=== PATIENT | female | born 1950 | race American Indian/Alaskan Native ===

== ENCOUNTER 2017-03-29 08:54 | Emergency (ER) | payer MEDICARE ==
[2017-03-29] MEDS ORDERED: MORPHINE IV ONE (09:44)
[2017-03-29] MEDS ORDERED: ZOFRAN IV ONE (09:44)
[2017-03-29] MEDS ORDERED: PEPCID IV ONE ×2 (09:44→10:05)
[2017-03-29] MEDS ORDERED: ZOFRAN ONE (10:01)
[2017-03-29] MEDS ORDERED: MORPHINE ONE ×2 (10:01→10:02)
[2017-03-29 10:19] LABS: Hematocrit 37.8 % (30.3-42.9); Hemoglobin 12.7 gm/dl (10.1-14.3); Mean Corpuscular HGB Conc 34 % (30-34); Mean Corpuscular Hemoglobin 27 pg (28-32); Mean Corpuscular Volume 82 fl (79-97); Platelet Count 264 K/mm3 (140-440); Red Blood Count 4.63 M/mm3 (3.65-5.03); Red Cell Distribution Width 12.5 % (13.2-15.2); White Blood Count 8.1 K/mm3 (4.5-11.0)
[2017-03-29 10:34] LABS: Alanine Aminotransferase 28 units/L (7-56); Albumin 4.5 g/dL (3.9-5); Albumin/Globulin Ratio 1.4 %; Alkaline Phosphatase 65 units/L (35-129); Anion Gap 21 mmol/L; BUN/Creatinine Ratio 22; Blood Urea Nitrogen 13 mg/dL (7-17); Calcium 9.1 mg/dL (8.4-10.2); Carbon Dioxide 24 mmol/L (22-30); Glucose 141 mg/dL (65-100); Lipase 14 units/L (13-60); Potassium 3.5 mmol/L (3.6-5.0); Sodium 141 mmol/L (137-145); Total Protein 7.7 g/dL (6.3-8.2)
[2017-03-29 11:08] LABS: Basophils % (Manual) 0 % (0.0-1.8); Blastocytes % (Manual) 0 %; Eosinophils % (Manual) 0 % (0.0-4.3)
[2017-03-29 11:09] LABS: Anisocytosis 1+; Diff Status Complete; Ovalocytes 1+; Poikilocytosis 1+; Stomatocytes 2+
--- NOTE | 2017-03-29 12:05 | Emergency Department Report ---
HPI - General Chief Complaint: Abdominal Pain Time Seen by Provider: 03/29/17 11:16 - HPI HPI: This is a 66-year-old after an [place] female who presents to the emergency department from home via EMS with complaint of abdominal pain, nausea, diarrhea , and vomiting that started last night after she ate [employer]. The pain was mostly mid upper abdomen and appeared to radiate towards chest. She denies any fever, shortness of breath, diaphoresis. She did not take anything for her symptoms prior to presentation. She is feeling improved after receiving some medication upon presentation here this morning, prior to my shift starting. She has a primary care physician through Dr. Jean Cai. She denies any past medical history other than some hypertension. No recent travel or sick contacts at home. ED Past Medical Hx - Past Medical History Previous Medical History?: Yes Hx Hypertension: Yes - Surgical History Past Surgical History?: Yes Additional Surgical History: hysterectomy - Social History Smoking Status: Never Smoker Substance Use Type: None - Medications Home Medications: Home Medications Medication Instructions Recorded Confirmed Last Taken Type Lisinopril [Zestril TAB] 04/09/13 04/09/13 Unknown History Diazepam Tab [Valium] 5 mg PO QHS PRN #30 tab 04/10/13 Unknown Rx oxyCODONE /ACETAMINOPHEN [Percocet 1 tab PO Q6HR PRN #30 tablet 04/10/13 Unknown Rx 5/325 mg] Acyclovir [Zovirax Tab] 800 mg PO QDAY #35 tab 05/27/13 Unknown Rx Oxycodone HCl/Acetaminophen 1 each PO Q4-6H PRN #30 tablet 05/27/13 Unknown Rx [Percocet 10-325 mg] Ondansetron [Zofran Odt] 4 mg PO Q8H PRN #10 tab.rapdis 03/29/17 Unknown Rx ED Review of Systems ROS: Stated complaint: N/V/D Other details as noted in HPI Comment: All other systems reviewed and negative Constitutional: denies: chills, fever Eyes: denies: eye pain, eye discharge, vision change ENT: denies: ear pain, throat pain Respiratory: denies: cough, shortness of breath, wheezing Cardiovascular: denies: palpitations, edema Gastrointestinal: abdominal pain, nausea, vomiting, diarrhea Genitourinary: denies: urgency, dysuria, discharge Musculoskeletal: denies: back pain, joint swelling, arthralgia Skin: denies: rash, lesions Neurological: denies: headache, weakness, paresthesias Physical Exam - Physical Exam Vital Signs: Vital Signs 03/29/17 03/29/17 09:35 10:00 Temperature 100 F H Pulse Rate 82 Respiratory 18 22 Rate Blood Pressure 182/81 O2 Sat by Pulse 99 Oximetry Physical Exam: GENERAL: The patient is well-developed well-nourished. HENT: Normocephalic. Atraumatic. Patient has moist mucous membranes. EYES: Extraocular motions are intact. Pupils equal reactive to light bilaterally. NECK: Supple. Trachea is midline. CHEST/LUNGS: Clear to auscultation. There is no respiratory distress noted. HEART/CARDIOVASCULAR: Regular. There is no tachycardia. There is no gallop rub or murmur. ABDOMEN: Abdomen is soft. Mild epigastric tenderness to palpation. No guarding or rebound tenderness. Patient has normal bowel sounds. There is no abdominal distention. SKIN: There is no rash. There is no edema. There is no diaphoresis. NEURO: The patient is awake, alert, and oriented. The patient is cooperative. The patient has no focal neurologic deficits. The patient has normal speech. MUSCULOSKELETAL: There is no tenderness or deformity. There is no limitation range of motion. There is no evidence of acute injury. ED Course Vital Signs 03/29/17 03/29/17 09:35 10:00 Temperature 100 F H Pulse Rate 82 Respiratory 18 22 Rate Blood Pressure 182/81 O2 Sat by Pulse 99 Oximetry ED Medical Decision Making - Lab Data Result diagrams: 03/29/17 09:56 03/29/17 09:56 - EKG Data -: EKG Interpreted by Nm EKG shows normal: sinus rhythm, axis, intervals (prolonged ND interval), QRS complexes, ST-T waves Rate: normal - EKG Data When compared to previous EKG there are: previous EKG unavailable Interpretation: other (sinus rhythm, prolonged ND interval, 77 bpm, no ST elevation NE) - Radiology Data Radiology results: report reviewed CTA CHEST CT ABDOMEN AND PELVIS WITH CONTRAST INDICATION: Elevated D-dimer, chest discomfort. COMPARISON: 05/30/[address] FINDINGS: Chest CTA performed following intravenous administration of 100 cc of Omnipaque 350. Rotational MIP's also obtained. Abdomen and pelvis CT also performed utilizing the same bolus. CHEST: Normal heart size. No effusion or size significant adenopathy. No aortic aneurysm, dissection or suspicious pulmonary arterial filling defect. Patent central airway. Normal imaged thyroid. Multiple bilateral subcentimeter noncalcified pulmonary nodules noted, many as on axial series 2, images 100-113 in the right lower lobe stable since 05/30/2012 as also few in the peripheral left lower lobe as on axial images 158 and 168. Approximately 4 mm similar peripheral right lower lobe nodule on axial image 159, series 2 though not definitively identified on the prior exam. Slight nonspecific distal esophageal prominence/thickening. ABDOMEN: Liver, spleen, gallbladder, pancreas, adrenals, nonaneurysmal abdominal aorta with few atherosclerotic calcifications, IVC and kidneys stable with approximately 2.2 cm left upper renal cortical cyst. No ascites or significant adenopathy. Nonopacified GI tract evaluation limited, though grossly nonobstructive. Normal appendix. Stable linear density/calcification along inner aspect of left rectus abdominis muscle, axial image 476, series 2. PELVIS: Healed infraumbilical midline incision. Uterus again surgically absent with numerous pelvic phleboliths. Minimal free fluid in the right hemipelvis. Sigmoid diverticulosis. Grossly unremarkable urinary bladder. No size significant adenopathy. Multilevel spinal degenerative changes as spurring, mild lumbar levoscoliosis and mid to lower lumbar facet arthropathy. CONCLUSION: 1. No CT evidence of pulmonary embolism or acute chest process in this patient with old granulomatous disease, as described. 2. No acute abdomen or pelvic CT abnormality with stable hysterectomy, diverticulosis and left renal cyst, amongst others, as above. Thank you for the opportunity to participate in this patient's care. Transcribed By: RS Dictated By: ADELSO SOLIS MD Electronically Authenticated By: ADELSO SOLIS MD Signed Date/Time: 03/29/17 6139 - Medical Decision Making This patient presented with some abdominal pain, nausea and vomiting and she felt like the pain radiated up towards the chest. EKG did not show any signs of ST elevation NE, ischemia or dysrhythmia. Her labs are mostly unremarkable except for a elevated and equivocal d-dimer. CT angiography of the chest and CT of the abdomen and pelvis with IV contrast were done that did not show any pulmonary embolus, dissection or any acute abnormalities in the abdomen or chest. She was given some pain medication, fluid and antinausea medication. She was reevaluated multiple times for multiple hours and says she is feeling much better. She was able to display the ability for oral rehydration. Vital signs stable throughout her ED course. She was discharged home with some antiemetics and encouragement to follow-up with her PCP. She will return to the ER with any worsening of her symptoms, intractable vomiting or inability to stay hydrated, or any acute distress. - Differential Diagnosis gastroenteritis, food poisoning, gastritis, diverticulitis, dissection Critical Care Time: No Critical care attestation.: If time is entered above; I have spent that time in minutes in the direct care of this critically ill patient, excluding procedure time. ED Disposition Clinical Impression: Abdominal pain Qualifiers: Abdominal location: upper abdomen, unspecified Qualified Code(s): R10.10 - Upper abdominal pain, unspecified Nausea & vomiting Qualifiers: Vomiting type: unspecified Vomiting Intractability: non-intractable Qualified Code(s): R11.2 - Nausea with vomiting, unspecified Disposition: TO HOME OR SELFCARE Is pt being admited?: No Condition: Stable Instructions: Acute Nausea and Vomiting (ED), Abdominal Pain (ED) Additional Instructions: Please follow-up with your primary care physician in the next few days. Increase her oral rehydration. Return to the emergency Department with any worsening of her symptoms, intractable vomiting, inability to stay hydrated, or any acute process. Prescriptions: Ondansetron [Zofran Odt] 4 mg PO Q8H PRN #10 tab.rapdis PRN Reason: Nausea Referrals: PRIMARY CARE, [Primary Care Provider] - [facility] Time of Disposition: 16:58
[2017-03-29 13:25] LABS: Bacteria,Urine 1+ /HPF (Negative); Bilirubin,Urine NEG (Negative); Blood,Urine SM (Negative); Ketones,Urine NEG (Negative); Leukocyte Esterase,Urine NEG (Negative); Mucus,Urine FEW /HPF; Nitrite,Urine NEG (Negative); Urobilinogen,Urine < 2.0 mg/dL (<2.0)
--- NOTE | 2017-03-29 15:46 | Cat Scan Report ---
CTA CHEST CT ABDOMEN AND PELVIS WITH CONTRAST INDICATION: Elevated D-dimer, chest discomfort. COMPARISON: 05/30/[address] FINDINGS: Chest CTA performed following intravenous administration of 100 cc of Omnipaque 350. Rotational MIP's also obtained. Abdomen and pelvis CT also performed utilizing the same bolus. CHEST: Normal heart size. No effusion or size significant adenopathy. No aortic aneurysm, dissection or suspicious pulmonary arterial filling defect. Patent central airway. Normal imaged thyroid. Multiple bilateral subcentimeter noncalcified pulmonary nodules noted, many as on axial series 2, images 100-113 in the right lower lobe stable since 05/30/2012 as also few in the peripheral left lower lobe as on axial images 158 and 168. Approximately 4 mm similar peripheral right lower lobe nodule on axial image 159, series 2 though not definitively identified on the prior exam. Slight nonspecific distal esophageal prominence/thickening. ABDOMEN: Liver, spleen, gallbladder, pancreas, adrenals, nonaneurysmal abdominal aorta with few atherosclerotic calcifications, IVC and kidneys stable with approximately 2.2 cm left upper renal cortical cyst. No ascites or significant adenopathy. Nonopacified GI tract evaluation limited, though grossly nonobstructive. Normal appendix. Stable linear density/calcification along inner aspect of left rectus abdominis muscle, axial image 476, series 2. PELVIS: Healed infraumbilical midline incision. Uterus again surgically absent with numerous pelvic phleboliths. Minimal free fluid in the right hemipelvis. Sigmoid diverticulosis. Grossly unremarkable urinary bladder. No size significant adenopathy. Multilevel spinal degenerative changes as spurring, mild lumbar levoscoliosis and mid to lower lumbar facet arthropathy. CONCLUSION: 1. No CT evidence of pulmonary embolism or acute chest process in this patient with old granulomatous disease, as described. 2. No acute abdomen or pelvic CT abnormality with stable hysterectomy, diverticulosis and left renal cyst, amongst others, as above. Thank you for the opportunity to participate in this patient's care.
[2017-03-29] MEDS ORDERED: REGLAN IV ONE (15:53)
[2017-03-29 17:22] VITALS: BP 146/79
== END 2017-03-29 17:23 | disposition home or self-care (01) ==
LOC: ED 08:54
DX: R10.10 Upper abdominal pain, unspecified (principal); R11.2 Nausea with vomiting, unspecified; R19.7 Diarrhea, unspecified; I10 Essential (primary) hypertension
CPT/HCPCS: 36415; 71275; 74177; 80053; 81001; 83690; 84484; 85007; 85025; 85379; 93005; 93010; 96374; 96375; 99284; J2270; J2405; J2765; Q9967

== ENCOUNTER 2018-09-11 11:23 | Outpatient (CLI) | payer MEDICARE, OTHER ==
--- NOTE | 2018-09-11 12:31 | XRay Report ---
RIGHT HIP, 2 views: History: Right hip pain. Normal bone mineralization. Minimal osteoarthritic changes are identified at the right hip. There are mild calcifications at the tendinous insertions on the greater trochanter and right ischium. No evidence for fracture, dislocation, osteonecrosis or bone lesion. IMPRESSION: Mild degenerative findings as described.
== END 2018-09-11 11:24 | disposition home or self-care (01) ==
LOC: XRAY 11:23
PROVIDERS: ATTEND Internal Medicine
DX: M16.11 Unilateral primary osteoarthritis, right hip (principal); I10 Essential (primary) hypertension; Z90.710 Acquired absence of both cervix and uterus

== ENCOUNTER 2021-05-10 10:28 | Emergency (ER) | payer MEDICARE, OTHER ==
[2021-05-10] MEDS ORDERED: ACETAMINOPHEN 325 MG TAB PO ONE (12:39)
[2021-05-10] MEDS ORDERED: IBUPROFEN 400 MG TAB PO ONE (12:39)
--- NOTE | 2021-05-10 12:41 | Emergency Department Report ---
ED General Adult HPI - General Chief complaint: Fall Stated complaint: right hip pain, fall PUI?: No Time Seen by Provider: 05/10/21 12:26 Source: patient, RN notes reviewed, old records reviewed Mode of arrival: Ambulatory Limitations: No Limitations - History of Present Illness Initial comments: The patient was evaluated in the emergency department for symptoms described in the history of present illness. He/she was evaluated in the context of the global COVID-19 pandemic, which necessitated consideration that the patient might be at risk for infection with the virus that causes COVID-19. Institutional protocols and algorithms that pertain to the evaluation of patients at risk for COVID-19 are in a state of rapid change based on information released by regulatory bodies including the CDC and federal and state organizations. These policies and algorithms were followed during the patient's care in the emergency department. Please note that these policies, procedures and recommendations changed on a rapid basis. The patient is a 71-year-old female. She presents to the ER today with complaints of right-sided hip pain, right-sided proximal thigh pain, and right paralumbar back pain, after mechanical fall last week. Patient reports that she fell down some stairs. She did not hit her head. Patient denies syncope or presyncope. Patient has been taking [id number] pain medication with minimal improvement in symptoms. The pain is throbbing, increases with palpation and range of motion, and decreases with rest. The patient reports that there are 6 stairs at home, she is ambulating with a cane, and that she lives at home with at least 1 family member. She denies additional injuries and complaints. -: Gradual, days(s) Location: back, right, lower extremity Radiation: non-radiation Quality: aching Improves with: other Worsens with: other - Related Data Home Medications Medication Instructions Recorded Confirmed Last Taken lisinopriL [Zestril TAB] 04/09/13 04/09/13 Unknown Previous Rx's Medication Instructions Recorded Last Taken Type diazePAM TAB [Valium] 5 mg PO QHS PRN #30 tab 04/10/13 Unknown Rx oxyCODONE /ACETAMINOPHEN [Percocet 1 tab PO Q6HR PRN #30 tablet 04/10/13 Unknown Rx 5/325 mg] Acyclovir [Zovirax Tab] 800 mg PO QDAY #35 tab 05/27/13 Unknown Rx Oxycodone HCl/Acetaminophen 1 each PO Q4-6H PRN #30 tablet 05/27/13 Unknown Rx [Percocet 10-325 mg] Ondansetron [Zofran Odt] 4 mg PO Q8H PRN #10 tab.rapdis 03/29/17 Unknown Rx Allergies Allergy/AdvReac Type Severity Reaction Status Date / Time No Known Allergies Allergy Unverified 03/29/17 09:38 ED Review of Systems ROS: Stated complaint: FELL ON RIGHT HIP Other details as noted in HPI Constitutional: denies: fever Eyes: denies: eye discharge ENT: denies: epistaxis Respiratory: denies: cough Cardiovascular: denies: chest pain Genitourinary: denies: dysuria Musculoskeletal: back pain, arthralgia, myalgia Neurological: denies: weakness, numbness ED Past Medical Hx - Past Medical History Previous Medical History?: Yes Hx Hypertension: Yes - Surgical History Past Surgical History?: Yes Additional Surgical History: hysterectomy - Social History Smoking Status: Never Smoker Substance Use Type: None - Medications Home Medications: Home Medications Medication Instructions Recorded Confirmed Last Taken Type lisinopriL [Zestril TAB] 04/09/13 04/09/13 Unknown History diazePAM TAB [Valium] 5 mg PO QHS PRN #30 tab 04/10/13 Unknown Rx oxyCODONE /ACETAMINOPHEN [Percocet 1 tab PO Q6HR PRN #30 tablet 04/10/13 Unknown Rx 5/325 mg] Acyclovir [Zovirax Tab] 800 mg PO QDAY #35 tab 05/27/13 Unknown Rx Oxycodone HCl/Acetaminophen 1 each PO Q4-6H PRN #30 tablet 05/27/13 Unknown Rx [Percocet 10-325 mg] Ondansetron [Zofran Odt] 4 mg PO Q8H PRN #10 tab.rapdis 03/29/17 Unknown Rx ED Physical Exam - General Limitations: No Limitations General appearance: alert, in no apparent distress - Head Head exam: Present: atraumatic, normocephalic - Eye Eye exam: Present: normal appearance, EOMI. Absent: nystagmus - ENT ENT exam: Present: normal exam, normal orophraynx, mucous membranes moist, normal external ear exam - Neck Neck exam: Present: normal inspection, full ROM. Absent: tenderness, meningismus - Respiratory Respiratory exam: Present: normal lung sounds bilaterally. Absent: respiratory distress, wheezes, rales, rhonchi, stridor, decreased breath sounds - Cardiovascular Cardiovascular Exam: Present: regular rate, normal rhythm, normal heart sounds. Absent: bradycardia, tachycardia, irregular rhythm, systolic murmur, diastolic murmur, rubs, gallop - GI/Abdominal GI/Abdominal exam: Present: soft. Absent: distended, tenderness, guarding, rebound, rigid, pulsatile mass - Extremities Exam Extremities exam: Present: normal inspection, full ROM, tenderness (There is right lateral pelvic and hip tenderness. There is proximal right femur tenderness.), other (2+ pulses noted in the bilateral upper and lower extremities. There is no palpable cord. negative Homans sign. Muscular compartments are soft. The pelvis is stable.). Absent: calf tenderness - Back Exam Back exam: Present: normal inspection, paraspinal tenderness. Absent: tenderness, CVA tenderness (R), CVA tenderness (L), muscle spasm - Neurological Exam Neurological exam: Present: alert, oriented X3, normal gait, other (No facial droop. Tongue midline. Extraocular movements intact bilaterally. Facial sensation intact to light touch in V1, V2, V3 distribution bilaterally. 5 and a 5 strength in 4 extremities. Sensation intact to light touch in 4 extremities.). Absent: motor sensory deficit - Psychiatric Psychiatric exam: Present: normal affect, normal mood - Skin Skin exam: Present: warm, dry, intact, normal color. Absent: rash ED Course Vital Signs 05/10/21 05/10/21 05/10/21 12:17 13:43 13:53 Temperature 98.6 F 98.9 F Pulse Rate 95 H 64 Respiratory 16 18 Rate Blood Pressure 141/90 163/73 [Left] O2 Sat by Pulse 98 Oximetry [ Digit-Finger] - Pulse Oximetry Interpretation Digit-Finger Initial Pulse Oximetry Readin O2 Sat by Pulse Oximetry: 98 Actions Taken: none ED Medical Decision Making - Lab Data Vital Signs 05/10/21 12:17 Temperature 98.6 F Pulse Rate 95 H Respiratory 16 Rate Blood Pressure 141/90 [Left] - Radiology Data Radiology results: pending, report reviewed, image reviewed AP PELVIS INDICATION / CLINICAL INFORMATION: Fall with pelvic pain. COMPARISON: None available. FINDINGS: BONES / JOINT(S): There is moderate lower lumbar spondylosis. There are minimal degenerative changes involving both hips. There is no evidence of acute fracture or subluxation. SOFT TISSUES: No significant abnormality. ADDITIONAL FINDINGS: None. IMPRESSION: No acute abnormality. Signer Name: En Ford MD Signed: 05/10/2021 12:16 PM Workstation Name: [id number] RIGHT FEMUR 2 VIEWS INDICATION / CLINICAL INFORMATION: Fall yesterday with right leg pain. COMPARISON: 09/11/18. FINDINGS: BONES / JOINT(S): There are mild degenerative changes involving the right kidney. There is no evidence of acute fracture or subluxation. SOFT TISSUES: No significant abnormality. ADDITIONAL FINDINGS: None. IMPRESSION: No acute abnormality. Signer Name: En Ford MD Signed: 05/10/2021 12:18 PM Workstation Name: [id number] - Medical Decision Making Differential diagnosis, including but not limited to: Sprain, strain, fracture, dislocation, musculoskeletal pain Assessment and plan: 71-year-old female, who is afebrile, with reassuring vital signs, saturating 98% on room Pulsoxymeter on my evaluation, presenting to the ER today with complaint of subacute right-sided paralumbar back pain, and right- sided hip pain and femur pain after mechanical fall last week on (it is currently Monday.) Patient ambulatory with a slow gait and with a cane for assistance. She has 6 stairs at home, and lives with at least one other person. X-rays show no fracture or dislocation. Saturating 99% on room air. Counseled patient on the natural history of mechanical fall, and blunt trauma. [place] improved after Tylenol and Motrin. She gave permission/consent further details of her care to be discussed with the family member, Ms. Echols ([phone]), who is an Allied health child care specialist. I called this phone number, nobody answered, and the voicemail is full. At the moment, the patient is resting comfortably on her stretcher, and she is not in any acute distress. Reached out to ER social media intern, I have requested home physical therapy evaluation. Social work/case management team will follow this up. Patient suitable for discharge at this point in time. Critical care attestation.: If time is entered above; I have spent that time in minutes in the direct care of this critically ill patient, excluding procedure time. ED Disposition Clinical Impression: Fall, Right hip pain Disposition: 01 HOME / SELF CARE / HOMELESS Is pt being admited?: No Does the pt Need Aspirin: No Condition: Good Additional Instructions: As we discussed, pain typically gets worse before it gets better after fall and blunt trauma.. Rest and avoid heavy lifting, and avoid strenuous physical activity. Engage in physical activities as tolerated. For pain, the patient can take ibuprofen, 400 mg with food every 6 hours, alternating with acetaminophen, 650 mg every 4 hours, also which can be purchased [id number]. Return to the ER right away with new pain, worsened pain, migration of pain, fevers, chills, confusion, weakness, numbness, intractable nausea or vomiting, severe chest pain, or severe abdominal pain. Patient has also been ordered for home physical therapy evaluation and our case management/social work team should be coordinating with your private insurance to set up for home physical therapy and evaluation. Please use cane as needed for assistance with ambulation, alternate ice packs and heat packs as needed for physical pain. Please follow-up with your primary care doctor in 5 to 7 days for a repeat checkup and evaluation X-rays did not demonstrate any fractures or dislocations today Referrals: SEE BRANDON MD [Staff Physician] - 3-5 Days [facility] [Provider Group] - 3-5 Days
--- NOTE | 2021-05-10 13:21 | XRay Report ---
AP PELVIS INDICATION / CLINICAL INFORMATION: Fall with pelvic pain. COMPARISON: None available. FINDINGS: BONES / JOINT(S): There is moderate lower lumbar spondylosis. There are minimal degenerative changes involving both hips. There is no evidence of acute fracture or subluxation. SOFT TISSUES: No significant abnormality. ADDITIONAL FINDINGS: None. IMPRESSION: No acute abnormality. Signer Name: En Ford MD Signed: 05/10/2021 1:16 PM Workstation Name: [id number]
--- NOTE | 2021-05-10 13:23 | XRay Report ---
RIGHT FEMUR 2 VIEWS INDICATION / CLINICAL INFORMATION: Fall yesterday with right leg pain. COMPARISON: 09/11/18. FINDINGS: BONES / JOINT(S): There are mild degenerative changes involving the right kidney. There is no evidenc e of acute fracture or subluxation. SOFT TISSUES: No significant abnormality. ADDITIONAL FINDINGS: None. IMPRESSION: No acute abnormality. Signer Name: En Ford MD Signed: 05/10/2021 1:18 PM Workstation Name: [id number]
[2021-05-10 13:54] VITALS: BP 163/73
== END 2021-05-10 13:54 | disposition home or self-care (01) ==
LOC: ED 10:28
DX: M25.551 Pain in right hip (principal); W19.XXXA Unspecified fall, initial encounter; Y93.89 Activity, other specified; Y92.89 Other specified places as the place of occurrence of the external cause; Y99.8 Other external cause status
CPT/HCPCS: 72170; 99283

== ENCOUNTER 2021-10-10 20:45 | Emergency (ER) | payer OTHER ==
[2021-10-10 21:20] VITALS: BP 239/98
== END 2021-10-11 00:10 ==
LOC: ED 20:45
DX: R53.1 Weakness (principal); Z53.21 Procedure and treatment not carried out due to patient leaving prior to being seen by health care provider